=== PATIENT | male | born 1960 | race African-American/Black ===

== ENCOUNTER → 2017-09-10 | Outpatient (CLI) | payer MEDICAID | END | disposition home or self-care (01) | LOC: RAD 12:55 | DX: M19.011 Primary osteoarthritis, right shoulder (principal) | CPT/HCPCS: 73030 ==

== ENCOUNTER → 2020-11-07 | Outpatient (CLI) | payer MEDICAID, MEDICARE ==
[~2020-11-07] MED LIST: AMLO2.5T5 PO; ASPI-630 PO; CYCL10TA2 PO; DICL75TA PO; LISI10TA16 PO; PRED-220 PO
--- NOTE | 2020-11-07 11:37 | RAD ---
EXAM: Abdomen sonogram. HISTORY: Pain. TECHNIQUE: Sonographic imaging of the abdomen was performed. COMPARISON: None. FINDINGS: The liver is normal in size. No focal hepatic lesion is seen. There is suspected hepatic st eatosis. The common bile duct is normal in caliber. The gallbladder is unremarkable. The kidneys are normal in size. There is no solid or cystic renal lesion or hydronephrosis. The spleen is normal in s ize. The pancreas, aorta and inferior vena cava are partially obscured due to bowel gas. IMPRESSION: 1. Suspected mild hepatic steatosis. 2. Partially obscured midline structures due to bowel gas. 3. No acute sonographic finding. Electronically signed by: Mara Tobar MD (11/07/2020 11:34 AM) [id number]
== END ==
LOC: US 09:30
PROVIDERS: ATTEND Family Medicine
DX: R10.84 Generalized abdominal pain (principal)
CPT/HCPCS: 76700

== ENCOUNTER 2021-04-26 12:14 | Emergency (ER) | payer MEDICARE, MEDICAID ==
[~2021-04-26] VITALS: Ht 190.5 cm; Wt 108.7 kg
[~2021-04-26 12:14] MED LIST changes: +CYCL10TA19 PO; -CYCL10TA2 PO
[2021-04-26 13:15] VITALS: BP 144/64
--- NOTE | 2021-04-26 13:40 | RAD ---
Site ID: [id number] EXAMINATION: XR CHEST 1V. HISTORY: 60 years Male Reason: SOB, COVID exposure. COMPARISON: None. Findings: Patchy infiltrates are from seen in the mid and lower left lung. The right lung is clear Th e heart size is normal. There is no effusion or pneumothorax. The mediastinum and mercedes appear unremarkable. Impression: Patchy left lung pneumonia. Electronically signed by: Thompson Tapia MD (04/26/2021 1:38 PM) [id number]
[2021-04-26 13:46] LABS: INFLUENZA A PATIENT NEGATIVE (NEGATIVE); INFLUENZA B PATIENT NEGATIVE (NEGATIVE)
[2021-04-26 14:16] LABS: BASO % 1 % (0-3); EOS % 0 % (0-3); HEMATOCRIT 40.5 % (39.0-53.0); HEMOGLOBIN 12.6 g/dL (13.0-17.5); LYMPH # 0.5 x10^3/uL (1.0-4.8); LYMPH % 16 % (24-48); MEAN CORPUSCULAR HEMOGLOBIN 21 pg (25-35); MEAN CORPUSCULAR HGB CONC 31 g/dL (31-37); MEAN CORPUSCULAR VOLUME 69 fL (79-100); MONO # 0.2 x10^3/uL (0.0-1.1); MONO % 6 % (0-9); NEUT # 2.5 x10^3/uL (1.8-7.7); NEUT % 77 % (31-73); PLATELET COUNT 124 x10^3/uL (140-400); RED BLOOD COUNT 5.89 x10^6/uL (4.30-5.70); RED CELL DISTRIBUTION WIDTH 14.1 % (11.5-14.5); WHITE BLOOD COUNT 3.3 x10^3/uL (4.0-11.0)
[2021-04-26 14:30] LABS: CALCIUM 8.4 mg/dL (8.5-10.1); CREATININE 1.3 mg/dL (0.7-1.3); GFR 68.4; POTASSIUM 4.2 mmol/L (3.5-5.1)
[2021-04-26 14:35] LABS: ALBUMIN 3.3 g/dL (3.4-5.0); ALBUMIN/GLOBULIN RATIO 0.8 (1.0-1.7); TOTAL BILIRUBIN 0.4 mg/dL (0.2-1.0); TOTAL PROTEIN 7.2 g/dL (6.4-8.2)
[2021-04-26 14:57] LABS: OVALOCYTES FEW
[2021-04-26 14:59] LABS: BURR CELLS FEW; PLT ESTIMATE DECREASED (ADEQUATE)
[2021-04-26 15:01] LABS: HYPOCHROMIA SLIGHT; MICROCYTOSIS MOD
--- NOTE | 2021-04-26 15:07 | PHYS DOC ---
Past Medical History Past Medical History: Hypertension Additional Past Medical Histor: spinal stenosis Past Surgical History: No Surgical History Smoking Status: Never Smoker Alcohol Use: Occasionally Drug Use: None General Adult EDM: Chief Complaint: FLU SYMPTOM HPI: HPI: Patient is a 60 year old male who presents with 4-day history of body aches, shortness of breath, nasal congestion, cough, abdominal pain. Patient states that his fiance tested positive for COVID-19 1-2 days prior to the onset of his symptoms. He states that although she was instructed to quarantine, she is "double headed," and he has been in close contact with her since her diagnosis. He denies fever, chills, chest pain, palpitations, sputum production, NVD, constipation. Review of Systems: Review of Systems: Constitutional: Denies fever or chills. Eyes: Denies change in visual acuity or visual field deficits. HENT: See HPI Respiratory: See HPI Cardiovascular: See HPI GI: See HPI : Denies dysuria or hematuria. Musculoskeletal: Denies back pain or joint pain. Integument: Denies rash or other skin lesions. Neurologic: Denies headache, focal weakness or sensory changes. Heart Score: C/O Chest Pain: No Allergies: Allergies: Allergies Coded Allergies Type Severity Reaction Last Updated Verified No Known Drug Allergies 04/25/13 No Physical Exam: PE: Constitutional: Well developed, well nourished, no acute distress, non-toxic appearance. HENT: Normocephalic, atraumatic, bilateral external ears normal, oropharynx moist, no oral exudates, nose without deformity. Eyes: PERRLA, EOMI, conjunctiva normal, no discharge. Neck: Normal range of motion, no tenderness, supple, no stridor. Cardiovascular: Heart rate regular rhythm, no murmur. Lungs & Thorax: Bilateral breath sounds clear to auscultation, diminished on the left. Abdomen: Bowel sounds normal, soft, no tenderness, no masses, no pulsatile masses. Skin: Warm, dry, no erythema, no rash. Current Patient Data: Labs: Laboratory Tests Test 04/26/21 13:20 04/26/21 14:04 Influenza Type A Antigen Negative (NEGATIVE) Influenza Type B Antigen Negative (NEGATIVE) White Blood Count 3.3 x10^3/uL (4.0-11.0) L Red Blood Count 5.89 x10^6/uL (4.30-5.70) H Hemoglobin 12.6 g/dL (13.0-17.5) L Hematocrit 40.5 % (39.0-53.0) Mean Corpuscular Volume 69 fL (79-100) L Mean Corpuscular Hemoglobin 21 pg (25-35) L Mean Corpuscular Hemoglobin Concent 31 g/dL (31-37) Red Cell Distribution Width 14.1 % (11.5-14.5) Platelet Count 124 x10^3/uL (140-400) L Neutrophils (%) (Auto) 77 % (31-73) H Lymphocytes (%) (Auto) 16 % (24-48) L Monocytes (%) (Auto) 6 % (0-9) Eosinophils (%) (Auto) 0 % (0-3) Basophils (%) (Auto) 1 % (0-3) Neutrophils # (Auto) 2.5 x10^3/uL (1.8-7.7) Lymphocytes # (Auto) 0.5 x10^3/uL (1.0-4.8) L Monocytes # (Auto) 0.2 x10^3/uL (0.0-1.1) Eosinophils # (Auto) 0.0 x10^3/uL (0.0-0.7) Basophils # (Auto) 0.0 x10^3/uL (0.0-0.2) Platelet Estimate Pending Sodium Level 138 mmol/L (136-145) Potassium Level 4.2 mmol/L (3.5-5.1) Chloride Level 102 mmol/L (98-107) Carbon Dioxide Level 28 mmol/L (21-32) Anion Gap 8 (6-14) Blood Urea Nitrogen 14 mg/dL (8-26) Creatinine 1.3 mg/dL (0.7-1.3) Estimated GFR (Cockcroft-Gault) 68.4 BUN/Creatinine Ratio 11 (6-20) Glucose Level 104 mg/dL (70-99) H Calcium Level 8.4 mg/dL (8.5-10.1) L Total Bilirubin 0.4 mg/dL (0.2-1.0) Aspartate Amino Transferase (AST) 34 U/L (15-37) Alanine Aminotransferase (ALT) 37 U/L (16-63) Alkaline Phosphatase 69 U/L (46-116) Total Protein 7.2 g/dL (6.4-8.2) Albumin 3.3 g/dL (3.4-5.0) L Albumin/Globulin Ratio 0.8 (1.0-1.7) L Laboratory Tests 04/26/21 14:04 Laboratory Tests 04/26/21 14:04 Vital Signs: Vital Signs Date Time Temp Pulse Resp B/P (MAP) Pulse Ox O2 Delivery O2 Flow Rate FiO2 04/26/21 13:15 100.0 81 20 144/64 (90) 97 Room Air 100.0 EKG: EKG: EKG Interpreted by Dr. Clayton at 1319: Regular rate and rhythm 81 bpm with no ectopic beats. RBBB. No STEMI. Radiology/Procedures: Radiology/Procedures: PROCEDURE: PORTABLE CHEST 1V Site ID: [id number] EXAMINATION: XR CHEST 1V. HISTORY: 60 years Male Reason: SOB, COVID exposure. COMPARISON: None. Findings: Patchy infiltrates are from seen in the mid and lower left lung. The right lung is clear The heart size is normal. There is no effusion or pneumothorax. The mediastinum and mercedes appear unremarkable. Impression: Patchy left lung pneumonia. Electronically signed by: Thompson Tapia MD (04/26/2021 1:38 PM) [id number] Course & Med Decision Making: Course & Med Decision Making Pertinent Labs and Imaging studies reviewed. (See chart for details) Patient is a 60-year-old male with known COVID-19 exposure at home who presents with 4-day history of body aches, congestion, cough, abdominal pain. Both COVID-19 and flu swabs will be obtained here in the department. Work-up will include chest x-ray, EKG, lab work. Chest x-ray does show left-sided infiltrate. Will prescribe Z-Wilfrido for community-acquired pneumonia. Otherwise, symptomatic supportive treatment will be initiated. Advised patient to use coolmist humidifier at night and Mucinex to aid in congestion. Patient given strict return precautions. Patient un derstands and is agreeable to discharge plan. Dragon Disclaimer: Dragon Disclaimer: This electronic medical record was generated, in whole or in part, using a voice recognition dictation system. Departure Departure Impression: Primary Impression: Suspected COVID-19 virus infection Additional Impression: Community acquired pneumonia Qualified Codes: J18.9 - Pneumonia, unspecified organism Disposition: 01 HOME / SELF CARE / HOMELESS Condition: STABLE Referrals: BERT RAMESH MD (PCP) Patient Instructions: Pneumonia, Adult, [id number] Additional Instructions: Mucinex (guaifenesin) and cool mist humidifier at night can help in clearing your nasal congestion. Albuterol inhaler can help with shortness of breath. The antibiotic is taken for a total of 5 days, but acts within your body longer. Vuxa-ctq-gurcely ibuprofen or acetaminophen may be used to treat body aches and/or fever. You may purchase a pulse oximeter at the pharmacy to monitor your oxygen saturation at home. If it is persistently below 90% at rest, come back for reevaluation. Please return to the emergency department for worsening symptoms, especially as noted below. You have been tested for or diagnosed with COVID-19. It is an infection caused by a new type of coronavirus. COVID-19 will cause cold-like or mild flu symptoms in most. It can cause more severe symptoms like problems breathing in some. There is no treatment for COVID-19. The body will clear the infection over time. Self-care will help to ease discomfort. Rest as needed. Healthy habits may help you feel better. Steps include: - Choose healthy foods including fruits and vegetables. Drink water throughout the day. - Get plenty of sleep each night. - If you smoke, try to quit. It may ease breathing. - Avoid alcohol. - Keep Others Healthy - The virus can spread to others. Droplets are released every time you sneeze or cough. The droplets can get into the mouth, nose, or eyes of people near you and lead to infection. To lower the chances of spreading COVID-19 to others: Stay at home until your doctor has said it is safe to leave. If you tested positive this will mean staying isolated until both of the following are true: - At least 14 days have passed since the start of illness. - You are free of fever for at least 72 hours without the use of medicine. During this time: - Avoid public areas, events, or transportation. Do not return to work or school until your doctor has said it is safe to do so. - Call ahead if you need to go to a medical center. Let them know you may have COVID-19. It will help them guide you where to go. They may also ask you to wear a facemask when you come to the office. - If you call for emergency medical services, let them know you may have COVID- 19. While at home: - Try to avoid close contact with others. Stay about 6 feet away. - If possible, spend most of your time in a separate room from others. - Use a face mask if you will be in close contact with others such as sharing a room or vehicle. - Have someone wipe down common surfaces in the home. Use household paralegal legal secretary every day on areas like doorknobs, counters, or sinks. - Cough or sneeze into a tissue. Throw the tissue away right after use. If a tissue is not available, cough or sneeze into your elbow. - Wash your hands often. Wash them after sneezing or coughing. Use soap and water and wash for at least 20 seconds. Alcohol based hand graffiti cleaner can be used if soap and water is not available. - Do not prepare food for others. Avoid sharing personal items like forks, spoons, or toothbrushes. - Avoid close contact with pets while you are sick. There is no evidence of the virus passing to pets. This is a safety step until more is known about this vi charla. - Isolation can be frustrating. Social interaction can help. Keep in touch with friends and family through phone and tech options. You can still interact with others in your home, just keep a safe distance of about 6 feet. Follow-up: Your doctors office will check in with you to see if there are any changes in your health. You may be asked to keep track of symptoms to share with them. They will also let you know when you are clear to be in public again. Contact your doctor if your recovery is not going as you expect. Get emergency care if you have problems such as: - Trouble breathing - Nonstop chest pain or pressure - Changes in awareness, confusion, or problems waking - Lips or face have bluish color - Worsening of symptoms If you think you have an emergency, call for emergency medical services right away. As taken from [employer] | [employer] [facility] Albuterol Sulfate (Proair Hfa) 8.5 Gm Hfa.aer.ad 2 PUFF IH PRN Q4-6HRS PRN for wheezing for 21 Days, #1 INHALER 0 Refills Prov: CARL,ASHLEIGH PA 04/26/21 Azithromycin (AZITHROMYCIN TABLET) 250 Mg Tablet 1 PKG PO UD for 5 Days, #6 TAB 0 Refills 2 the first day followed by 1 for days 2-5 Prov: ASHLEIGH CARL 04/26/21 ASHLEIGH CARL Apr 26, 2021 15:07
[2021-04-26] MEDS ORDERED: AZIT250T6 PO (15:24)
[2021-04-26] MEDS ORDERED: ALBU2.5V8 IH (15:24)
--- NOTE | 2021-04-26 16:26 | EKG ---
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
--- NOTE | 2021-04-29 11:31 | NUR ---
IP: Attempted to contact pt concerning covid results. No answer, left a voicemail to return the call.
--- NOTE | 2021-04-29 15:08 | NUR ---
IP: Pt returend call. Informed him of postive covid test and the need to quarantine for 10 days. Pt verbalized understanding.
== END 2021-04-26 16:00 | disposition home or self-care (01) ==
LOC: ER 12:14
DX: U07.1 COVID-19 (principal); J18.9 Pneumonia, unspecified organism; I10 Essential (primary) hypertension
CPT/HCPCS: 36415; 71045; 80053; 85025; 87804; 93005; 99285; U0003; U0005